=== PATIENT | female | born 1990 | race Caucasian/White ===

== ENCOUNTER 2021-02-28 11:57 | Emergency (ER) | payer OTHER ==
[~2021-02-28] VITALS: Ht 170.2 cm; Wt 73.9 kg
[2021-02-28] MEDS ORDERED: CASIRIVIMAB/IMDEVIMAB 10 ML in SODIUM CHLORIDE 0.9% 100 ML IV ONE (12:45)
== END 2021-02-28 13:56 | disposition home or self-care (01) ==
LOC: ER 12:40
DX: U07.1 COVID-19 (principal); R05.9 Cough, unspecified; J45.909 Unspecified asthma, uncomplicated
CPT/HCPCS: 99282; J7050